=== PATIENT | female | born 1980 | race Caucasian/White ===

== ENCOUNTER 2020-01-26 06:38 | Emergency (ER) | payer OTHER ==
[2020-01-26 06:47] VITALS: TEMP 98
[2020-01-26] MEDS ORDERED: ONDANSETRON 4 MG/2 ML VIAL IVP STA (07:03)
[2020-01-26] MEDS ORDERED: KETOROLAC 30 MG/ML 1 ML VIAL IVP STA (07:03)
[2020-01-26] MEDS ORDERED: PANTOPRAZOLE 40 MG/10 ML VIAL IVP STA (07:03)
[2020-01-26] MEDS ORDERED: SODIUM CHLORIDE 0.9% 1,000 ML IV STA ×2 (07:03)
--- NOTE | 2020-01-26 07:06 | ED ---
Abdominal Pain HPI - General Chief Complaint: Abdominal Pain Stated Complaint: Abdominal Pain Time Seen by Provider: 01/26/20 06:50 Source: patient, RN notes reviewed, old records reviewed Mode of arrival: ambulatory Limitations: no limitations - History of Present Illness Initial Comments: Laura is a 39-year-old female presents or disturbance today to date weeks of abdominal pain which she hasn't seen in [facility]. Initially she is placed on Pepcid. She reports that she follow up with her primary care doctor yesterday and had full laboratory done at [facility] including an ultrasound. She reports this was done yesterday and also started back on metformin yesterday. She reports she came in today because she woke up in the middle the night with worsening abdominal pain which she broke out in a sweat and complaint of diarrhea. - Related Data Home Medications Medication Instructions Recorded Confirmed Ascorbic Acid [Vitamin C] 500 mg PO HS 01/26/20 01/26/20 Famotidine 40 mg PO HS 01/26/20 01/26/20 Ferrous Sulfate [Feosol] 975 mg PO Q48H 01/26/20 01/26/20 hydrOXYzine HCL [Atarax] 10 - 30 mg PO TID PRN 01/26/20 01/26/20 metFORMIN HCL [metFORMIN HCL ER] 500 mg PO HS 01/26/20 01/26/20 Previous Rx's Medication Instructions Recorded Ibuprofen [Motrin] 600 mg PO Q8HR PRN #20 tab 01/26/20 Allergies Allergy/AdvReac Type Severity Reaction Status Date / Time Penicillins Allergy Rash/Hives Verified 01/26/20 10:41 Review of Systems ROS Statement: Those systems with pertinent positive or pertinent negative responses have been documented in the HPI. ROS Other: All systems not noted in ROS Statement are negative. Past Medical History Past Medical History: Diabetes Mellitus History of Any Multi-Drug Resistant Organisms: None Reported Past Surgical History: Section Past Psychological History: No Psychological Hx Reported Smoking Status: Never smoker Past Alcohol Use History: None Reported Past Drug Use History: Marijuana General Exam - General Exam Comments Initial Comments: 39-year-old female. Alert and oriented. No distress. Limitations: no limitations General appearance: alert, in no apparent distress Head exam: Present: atraumatic, normocephalic, normal inspection Eye exam: Present: normal appearance ENT exam: Present: normal exam, mucous membranes moist Neck exam: Present: normal inspection. Absent: tenderness, meningismus, lymphadenopathy Respiratory exam: Present: normal lung sounds bilaterally. Absent: respiratory distress, wheezes, rales, rhonchi, stridor Cardiovascular Exam: Present: regular rate, normal rhythm, normal heart sounds. Absent: systolic murmur, diastolic murmur, rubs, gallop, clicks GI/Abdominal exam: Present: soft, tenderness (Right upper quadrant left upper quadrant tenderness.), normal bowel sounds. Absent: distended, guarding, rebound, rigid Extremities exam: Present: normal inspection, full ROM, normal capillary refill. Absent: tenderness, pedal edema, joint swelling, calf tenderness Back exam: Present: normal inspection Course Vital Signs 01/26/20 06:41 Temperature 98 F Pulse Rate 93 Respiratory 18 Rate Blood Pressure 155/89 O2 Sat by Pulse 99 Oximetry Medical Decision Making - Medical Decision Making 39-year-old female who presents emergency Department today with complaints of worsening upper abdominal pain today and she's been having symptoms for the past 2 weeks. Patient had ultrasound completed yesterday at [facility] and Patient is able to hold the report from me today. His evidence of cholelithiasis with similar symptoms but no secondary evidence of acute cholecystitis. We did perform laboratory today showed normal white blood cell count and liver enzymes are mildly elevated. EKG and troponin were unremarkable. Patient at this time was given IV fluids and was reevaluated after Toradol. Findings suggesting comfortably in bed. Discussed to further evaluate again CT was completed with a history of cholelithiasis. The computed tomography scan shows evidence of cholelithiasis without acute cholecystitis or obstructing stone. Patient was informed of these results. Discussed Patient is follow-up with that she is doctor and surgeon for likely gallbladder removal with the upcoming future. I discussed the Patient were to have any other significant symptoms or acute reevaluated this time. Patient is agreeable to treatment plan will comply. - Lab Data Result diagrams: 01/26/20 07:01/26/20 07:27 Lab Results 01/26/20 01/26/20 01/26/20 Range/Units 07:27 07:27 07:27 WBC 9.2 (3.8-10.6) k/uL RBC 4.99 (3.80-5.40) m/uL Hgb 14.2 (11.4-16.0) gm/dL Hct 43.0 (34.0-46.0) % MCV 86.2 (80.0-100.0) fL MCH 28.4 (25.0-35.0) pg MCHC 32.9 (31.0-37.0) g/dL RDW 14.7 (11.5-15.5) % Plt Count 209 (150-450) k/uL Neutrophils % 79 % Lymphocytes % 12 % Monocytes % 6 % Eosinophils % 1 % Basophils % 0 % Neutrophils # 7.3 (1.3-7.7) k/uL Lymphocytes # 1.1 (1.0-4.8) k/uL Monocytes # 0.6 (0-1.0) k/uL Eosinophils # 0.1 (0-0.7) k/uL Basophils # 0.0 (0-0.2) k/uL PT (9.0-12.0) sec INR (<1.2) APTT (22.0-30.0) sec Sodium 137 (137-145) mmol/L Potassium 4.1 (3.5-5.1) mmol/L Chloride 101 (98-107) mmol/L Carbon Dioxide 23 (22-30) mmol/L Anion Gap 13 mmol/L BUN 14 (7-17) mg/dL Creatinine 0.66 (0.52-1.04) mg/dL Est GFR (CKD-EPI)AfAm >90 (>60 ml/min/1.73 sqM) Est GFR (CKD-EPI)NonAf >90 (>60 ml/min/1.73 sqM) Glucose 122 H (74-99) mg/dL Calcium 9.4 (8.4-10.2) mg/dL Total Bilirubin 0.9 (0.2-1.3) mg/dL AST 57 H (14-36) U/L ALT 110 H (4-34) U/L Alkaline Phosphatase 80 (38-126) U/L Troponin I (0.000-0.034) ng/mL Total Protein 7.8 (6.3-8.2) g/dL Albumin 4.2 (3.5-5.0) g/dL Amylase 37 (30-110) U/L Lipase 67 (23-300) U/L Urine Color Dark Yellow Urine Appearance Cloudy H (Clear) Urine pH 6.0 (5.0-8.0) Ur Specific [place] 1.032 (1.001-1.035) Urine Protein 2+ H (Negative) Urine Glucose (UA) Negative (Negative) Urine Ketones 4+ H (Negative) Urine Blood Negative (Negative) Urine Nitrite Negative (Negative) Urine Bilirubin Negative (Negative) Urine Urobilinogen 3.0 (<2.0) mg/dL Ur Leukocyte Esterase Trace H (Negative) Urine WBC 12 H (0-5) /hpf Ur Squamous Epith Cells 11 H (0-4) /hpf Calcium Oxalate Crystal Many H (None) /hpf Urine Bacteria Occasional H (None) /hpf Urine Mucus Many H (None) /hpf 01/26/20 01/26/20 Range/Units 07:27 07:27 WBC (3.8-10.6) k/uL RBC (3.80-5.40) m/uL Hgb (11.4-16.0) gm/dL Hct (34.0-46.0) % MCV (80.0-100.0) fL MCH (25.0-35.0) pg MCHC (31.0-37.0) g/dL RDW (11.5-15.5) % Plt Count (150-450) k/uL Neutrophils % % Lymphocytes % % Monocytes % % Eosinophils % % Basophils % % Neutrophils # (1.3-7.7) k/uL Lymphocytes # (1.0-4.8) k/uL Monocytes # (0-1.0) k/uL Eosinophils # (0-0.7) k/uL Basophils # (0-0.2) k/uL PT 10.7 (9.0-12.0) sec INR 1.0 (<1.2) APTT 23.5 (22.0-30.0) sec Sodium (137-145) mmol/L Potassium (3.5-5.1) mmol/L Chloride (98-107) mmol/L Carbon Dioxide (22-30) mmol/L Anion Gap mmol/L BUN (7-17) mg/dL Creatinine (0.52-1.04) mg/dL Est GFR (CKD-EPI)AfAm (>60 ml/min/1.73 sqM) Est GFR (CKD-EPI)NonAf (>60 ml/min/1.73 sqM) Glucose (74-99) mg/dL Calcium (8.4-10.2) mg/dL Total Bilirubin (0.2-1.3) mg/dL AST (14-36) U/L ALT (4-34) U/L Alkaline Phosphatase (38-126) U/L Troponin I <0.012 (0.000-0.034) ng/mL Total Protein (6.3-8.2) g/dL Albumin (3.5-5.0) g/dL Amylase (30-110) U/L Lipase (23-300) U/L Urine Color Urine Appearance (Clear) Urine pH (5.0-8.0) Ur Specific [place] (1.001-1.035) Urine Protein (Negative) Urine Glucose (UA) (Negative) Urine Ketones (Negative) Urine Blood (Negative) Urine Nitrite (Negative) Urine Bilirubin (Negative) Urine Urobilinogen (<2.0) mg/dL Ur Leukocyte Esterase (Negative) Urine WBC (0-5) /hpf Ur Squamous Epith Cells (0-4) /hpf Calcium Oxalate Crystal (None) /hpf Urine Bacteria (None) /hpf Urine Mucus (None) /hpf 01/26/20 07:14 EKG shows normal sinus rhythm normal EKG. Ventricular rate of 79 bpm. SD interval is 142 ms. QS duration is 94 ms. QT QTc is 378/433 ms. - Radiology Data Radiology results: report reviewed CC she is evidence of cholelithiasis. Hepatomegaly probably fatty infiltration of liver. Class of the left side of the colon difficult access for the bowel wall. Correlate for colitis. 2.7 m renal mass likely adenoma. Simple- appearing 5.3 cm right adnexal cyst. Mild degenerative changes in the spine. Chest x-rays negative for any acute process. KUB shows no acute intra-abdominal abnormality. Reviewed the ultrasound from [facility] report shows appendix U ptosis versus underlying Cellular disease. His evidence of cholelithiasis with layering sludge noted in the gallbladder. No other sonographic evidence for acute cholecystitis. The remainder of exam is normal. This was read by Dr. boni holland. Disposition Clinical Impression: Cholelithiasis, Biliary colic Disposition: HOME SELF-CARE Condition: Good Instructions (If sedation given, give patient instructions): Biliary Colic (ED) Additional Instructions: Please use medication as discussed. Please follow up with family doctor if symptoms have not improved over the next two days. Please return to the emergency room if your symptoms increase or worsen or for any other concerns. Prescriptions: Ibuprofen [Motrin] 600 mg PO Q8HR PRN #20 tab PRN Reason: Pain Is patient prescribed a controlled substance at d/c from ED?: No Referrals: Boni Liriano MD [Primary Care Provider] - 1-2 days Danie Logan DO [Doctor of Osteopathic Medicine] - 1-2 days Time of Disposition: 10:50
[2020-01-26 07:53] LABS: ALT 110 U/L (4-34); AST 57 U/L (14-36); African American GFR (CKD) >90 (>60 ml/min/1.73 sqM); Albumin 4.2 g/dL (3.5-5.0); Alkaline Phosphatase 80 U/L (38-126); Amylase 37 U/L (30-110); Anion Gap 13 mmol/L; Blood Urea Nitrogen 14 mg/dL (7-17); Calcium 9.4 mg/dL (8.4-10.2); Carbon Dioxide 23 mmol/L (22-30); Chloride 101 mmol/L (98-107); Glucose 122 mg/dL (74-99); Non-African American GFR(CKD) >90 (>60 ml/min/1.73 sqM); Potassium 4.1 mmol/L (3.5-5.1); Sodium 137 mmol/L (137-145); Total Bilirubin 0.9 mg/dL (0.2-1.3); Total Protein 7.8 g/dL (6.3-8.2)
[2020-01-26 08:01] LABS: Basophils % (A) 0 %; Eosinophils # (A) 0.1 k/uL (0-0.7); Eosinophils % (A) 1 %; HGB 14.2 gm/dL (11.4-16.0); Lymphocytes # (A) 1.1 k/uL (1.0-4.8); Lymphocytes % (A) 12 %; MCH 28.4 pg (25.0-35.0); MCHC 32.9 g/dL (31.0-37.0); MCV 86.2 fL (80.0-100.0); Mean Platelet Volume 7.8; Monocytes # (A) 0.6 k/uL (0-1.0); Monocytes % (A) 6 %; Neutrophils # (A) 7.3 k/uL (1.3-7.7); Neutrophils % (A) 79 %; Platelet Count 209 k/uL (150-450); RBC 4.99 m/uL (3.80-5.40); RDW 14.7 % (11.5-15.5); WBC 9.2 k/uL (3.8-10.6)
--- NOTE | 2020-01-26 08:03 | XR ---
EXAMINATION TYPE: XR KUB , 2 VIEWS DATE OF EXAM ORDERED: 01/26/2020 HISTORY: abdominal pain. COMPARISON: None. FINDINGS: Lung bases are clear. Within the abdomen, the abdominal gas pattern is normal. There is no evidence of obstruction or free air. No unusual calcifications are seen. A single surgical clip is noted within the pelvis. IMPRESSION: NO ACUTE INTRA-ABDOMINAL ABNORMALITY.
--- NOTE | 2020-01-26 08:04 | XR ---
EXAMINATION TYPE: XR chest 2V DATE OF EXAM ORDERED: 01/26/2020 HISTORY: abdominal pain. REFERENCE: None. FINDINGS: The lungs are clear. Pleural spaces are clear. Heart size is normal. IMPRESSION: NORMAL CHEST.
[2020-01-26 08:10] LABS: Appearance,Urine Cloudy (Clear); Bacteria,Urine Occasional /hpf; Bilirubin,Urine Negative (Negative); Blood,Urine Negative (Negative); Calcium Oxalate Crystals,Urine Many /hpf; Color,Urine Dark Yellow; Glucose,Urine (UA) Negative (Negative); Ketones,Urine 4+ (Negative); Leukocyte Esterase,Urine Trace (Negative); Mucus,Urine Many /hpf; Nitrite,Urine Negative (Negative); Protein,Urine 2+ (Negative); Specific Gravity,Urine 1.032 (1.001-1.035); Squamous Epithelial Cell,Urine 11 /hpf (0-4); WBC,Urine 12 /hpf (0-5)
[2020-01-26 09:36] LABS: Partial Thromboplastin Time 23.5 sec (22.0-30.0); Prothrombin Time 10.7 sec (9.0-12.0)
--- NOTE | 2020-01-26 09:52 | CT ---
EXAMINATION TYPE: CT abdomen pelvis w con DATE OF EXAM: 01/26/2020 REFERENCE: NONE HISTORY: R abdominal pain HISTORY: RUQ pain, diarrhea CT DLP: 3627.9 mGy Automated exposure control for dose reduction was used. TECHNIQUE: Helical acquisition through the abdomen and pelvis was obtained following the oral ingesti on of without Oral Contrast and following intravenous administration of 100 mL of Isovue 300. The mati a was reformatted in axial, coronal and sagittal projections. FINDINGS: Visualized portions of the lungs are clear. There is no pleural or pericardial fluid. The heart is not enlarged. Within the abdomen, there are multiple faceted gallstones within the gallbladder. The liver is enlarg ed measuring 21 cm. It is low attenuation and likely fatty infiltrated. The spleen is upper limits of normal in size. There is a 2.9 cm low attenuating mass within the left adrenal gland. The right adrenal gland is norm al. There is no nephrolithiasis or hydronephrosis. Visualized portions of the pancreas are normal. There is no significant retroperitoneal, iliac or inguinal adenopathy. There is an IUCD within the uterus. There is a simple appearing, 5.3 cm right adnexal cyst. The bladd er is not distended. There is collapse of much of the left side of the colon making assessment of the bowel wall thickness difficult. The appendix is not seen with certainty. Small bowel loops are normal. There is no free fluid and no free air identified. There is hypertrophic spondylosis within the dorsal spine and facet arthropathy in the lower lumbar s pine. IMPRESSION: 1. CHOLELITHIASIS. 2. HEPATOMEGALY AND PROBABLE FATTY INFILTRATION OF THE LIVER. 3. COLLAPSE OF MUCH OF THE LEFT SIDE OF THE COLON MAKES IT DIFFICULT TO ASSESS THE BOWEL WALL. PLEASE CORRELATE FOR COLITIS. 4. 2.9 CM LOW ATTENUATING ADRENAL MASS, LIKELY AN ADENOMA. 5. SIMPLE APPEARING 5.3 CM RIGHT ADNEXAL CYST. 6. MILD DEGENERATIVE CHANGE WITHIN THE SPINE.
[2020-01-26] MEDS ORDERED: traMADol 50 MG STARTER PACK 3 TAB BTL PO STA (10:51)
[2020-01-26 11:10] VITALS: BP 136/79; PULSE 80; RESP 16
== END 2020-01-26 11:10 | disposition home or self-care (01) ==
LOC: EC 06:38
DX: K80.70 Calculus of gallbladder and bile duct without cholecystitis without obstruction (principal); E11.9 Type 2 diabetes mellitus without complications; Z88.0 Allergy status to penicillin; Z79.84 Long term (current) use of oral hypoglycemic drugs
CPT/HCPCS: 36415; 93005; 80053; 82150; 83690; 84484; 85025; 85610; 85730; 81001; 87086; 71046; 74018; 74177; 99285; 96374; 96375 ×2; 96361 ×4; J2405; J1885; C9113; Q9967

== ENCOUNTER → 2020-05-19 | Outpatient (CLI) | payer OTHER ==
--- NOTE | 2020-05-19 15:49 | US ---
EXAMINATION TYPE: US pelvic complete DATE OF EXAM: 05/19/2020 COMPARISON: CT 01/26/2020 CLINICAL HISTORY: 40-year-old female N83.0 Right ovarian cyst. TECHNIQUE: Transabdominal sonographic images of the pelvis were acquired. Date of LMP: 04/19/2020 FINDINGS: EXAM MEASUREMENTS: Uterus: 12.5 x 4.6 x 4.8 cm Endometrial Stripe: 0.6 cm Right Ovary: 3.0 x 2.3 x 2.8 cm Left Ovary: 3.0 x 2.0 x 2.5 cm Segregator notes: Severely, morbidly obese pt 1. Uterus: Anteverted. The visualized portions appeared wnl 2. Endometrium: wnl 3. Right Ovary: Appeared wnl, previous cyst visualized on CT not seen on today's exam 4. Left Ovary: Appeared wnl 5. Bilateral Adnexa: wnl 6. Posterior cul-de-sac: wnl IMPRESSION: Exam limitations due to large patient body habitus. The right ovary measures 3.0 x 2.8 x 2.3 cm and t he 5.3 cm cyst seen on the patient's 01/26/2020 CT is no longer demonstrated, probably a resolved func tional cyst.
== END | disposition home or self-care (01) ==
LOC: RADUSWWP 14:51
PROVIDERS: ATTEND Obstetrics & Gynecology
DX: N83.01 Follicular cyst of right ovary (principal)
CPT/HCPCS: 76856